=== PATIENT | male | born 1965 | race Caucasian/White ===

== ENCOUNTER 2021-10-28 20:01 | Emergency (ER) | payer OTHER ==
[2021-10-28 20:12] VITALS: BMI 22.8
[2021-10-28 20:33] VITALS: BP 144/90; PULSE 80; TEMP 99
== END 2021-10-28 21:08 | disposition home or self-care (01) ==
LOC: FER 20:01
DX: R07.89 Other chest pain (principal)
CPT/HCPCS: 93005; 99283-25